=== PATIENT | female | born 1985 | race Two or more races ===

== ENCOUNTER 2024-08-24 23:11 | Emergency (ER) | payer BC ==
[~2024-08-24] VITALS: Ht 165.1 cm; Wt 61.2 kg
[2024-08-25] MEDS ORDERED: IBUPROFEN 600 MG TABLET PO ONE
[2024-08-25] MEDS ORDERED: IBUPROFEN 600 MG TABLET ONE (00:17)
[2024-08-25 00:20] VITALS: BP 110/72; TEMP 98; O2SAT 100
== END 2024-08-25 01:29 | disposition home or self-care (01) ==
LOC: ER 23:14
DX: M25.532 Pain in left wrist (principal); J45.909 Unspecified asthma, uncomplicated
CPT/HCPCS: 73110